=== PATIENT | female | born 1975 | race Caucasian/White ===

== ENCOUNTER 2024-02-23 06:30 | Emergency (ER) | payer OTHER ==
[2024-02-23 06:47] LABS: HEMATOCRIT 48.4 % (37.0-47.0); MEAN CORPUSCULAR HEMOGLOBIN 29.9 pg (28.0-32.0); MEAN CORPUSCULAR HGB CONC 33.1 g/dL (32.0-36.0); MEAN CORPUSCULAR VOLUME 90.3 fL (83.0-99.0); MEAN PLATELET VOLUME 9.7 fL (9.4-12.3); PLATELET COUNT,PLT 330 K/uL (150-400); RED BLOOD CELL COUNT 5.36 M/uL (4.10-5.30); WHITE BLOOD CELL COUNT,WBC 13.84 K/uL (3.9-11.3)
[2024-02-23] MEDS: Aspirin 81 MG Tab.Chew PO STA (06:47)
[2024-02-23] MEDS: Ondansetron 4 MG/2 ML SDV IVPUSH ONE (06:47)
[2024-02-23] MEDS: Ketorolac 30 MG/ML SDV IVPUSH ONE (06:47)
[2024-02-23] MEDS: Morphine 4 MG/ML Syringe IVPUSH ONE (06:48)
[2024-02-23] MEDS: Sodium Chloride 0.9% 2.5 ML Syringe FLUSH PRN (06:48)
[2024-02-23] MEDS: Sodium Chloride 0.9% 10 ML Syringe FLUSH PRN (06:48)
[2024-02-23 07:09] LABS: EOSINOPHILS ABSOLUTE MAN 1.25 K/uL (0.00-0.45); EOSINOPHILS PERCENT MAN 9 % (0-6); LYMPHOCYTES ABSOLUTE MAN 6.37 K/uL (1.00-4.80); LYMPHOCYTES PERCENT MAN 46 % (24-44); MONOCYTES ABSOLUTE MAN 1.25 K/uL (0.00-0.80); MONOCYTES PERCENT MAN 9 % (0-8); SEG NEUTROPHILS ABSOLUTE MAN 4.98 K/uL (1.80-7.70); SEG NEUTROPHILS PERCENT MAN 36 % (41-71)
[2024-02-23 07:13] LABS: ALANINE AMINOTRANSFERASE,ALT 22 IU/L (14-63); ALKALINE PHOSPHATASE 97 U/L (46-116); ASPARTATE AMNIOTRANSFERASE,AST 14 IU/L (15-37); BILIRUBIN TOTAL 0.5 mg/dL (0.2-1.0); BLOOD UREA NITROGEN,BUN 11 mg/dL (7.0-18.0); CALCIUM 9.4 mg/dL (8.5-10.1); CARBON DIOXIDE,CO2 29.4 mmol/L (21.0-32.0); CHLORIDE,CL 102 mmol/L (98-107); CREATININE 0.9 mg/dL (0.6-1.0); GLUCOSE RANDOM 99 mg/dL (74-106); POTASSIUM,K 3.7 mmol/L (3.5-5.1); SODIUM,NA 141 mmol/L (136-145)
[2024-02-23 07:14] LABS: ESTIMATED GFR 78 mL/min (>60)
[2024-02-23 07:38] LABS: CORONAVIRUS COVID-19 NAA NEGATIVE (NEGATIVE); INFLUENZA A NAA NEGATIVE (NEGATIVE); INFLUENZA B NAA NEGATIVE (NEGATIVE); RESPIRATORY SYNCYTIAL VIR NAA NEGATIVE (NEGATIVE)
[2024-02-23] MEDS: Albuterol/Ipratropium 3.0-0.5 MG/3 ML Neb Soln NEB ONE (07:47)
[2024-02-23] MEDS: SUMAtriptan 50 MG Tab PO ONE (09:28)
[2024-02-23] MEDS: Doxycycline 100 MG Cap PO STA (09:55)
== END 2024-02-23 10:20 | disposition home or self-care (01) ==
LOC: MW.ED 06:30
DX: J18.9 Pneumonia, unspecified organism (principal); Z75.8 Other problems related to medical facilities and other health care
CPT/HCPCS: 0241U; 36415; 71045; 80053; 84484; 85025; 85379; 94640; 96374; 96375; 99285; A9270; J1885; J2270; J2405; J3490; 93010; 99283; J7620-GY

== ENCOUNTER → 2024-06-15 | Day surgery (SDC) | payer OTHER ==
[~2024-06-15] MED LIST: Sodium Chloride 0.9% 10 ML Syringe FLUSH PRN; Sodium Chloride 0.9% 2.5 ML Syringe FLUSH PRN; Sodium Chloride 0.9% 20 ML SDV IV PRN; fentaNYL 100 MCG/2 ML SDV ONE; propofoL 50 ML ONE
[2024-06-15] MEDS: Lactated Ringers 1,000 ML IV SCH (12:05)
== END ==
LOC: MW.SDS 10:42
PROVIDERS: ATTEND Surgery
DX: Z12.11 Encounter for screening for malignant neoplasm of colon (principal); J44.9 Chronic obstructive pulmonary disease, unspecified; K21.9 Gastro-esophageal reflux disease without esophagitis; F32.A Depression, unspecified; E66.9 Obesity, unspecified; F17.210 Nicotine dependence, cigarettes, uncomplicated; Z68.36 Body mass index [BMI] 36.0-36.9, adult; Z79.899 Other long term (current) drug therapy
CPT/HCPCS: 45378; 81025; J2704; J3010; J7120